=== PATIENT | male | born 1995 | race Caucasian/White ===

== ENCOUNTER 2023-04-27 02:42 | Inpatient (IN) | payer SELFPAY, OTHER ==
[2023-04-27] MEDS ORDERED: Ondansetron PF 4 MG/2 ML Vial ONE ×2 (02:46→13:35)
[2023-04-27] MEDS ORDERED: Morphine 4 MG/ML VIAL ONE ×2 (02:46→04:06)
[2023-04-27] MEDS ORDERED: Boostrix 0.5 ML (Tdap) VIAL (>/=7 yrs of age) ONE (02:47)
[2023-04-27 03:24] LABS: #Eosinphils 0.1 thou/uL (0.0-0.7); #Monocytes 0.9 thou/uL (0.11-0.59); #Neutrophils 7.7 thou/uL (1.40-6.50); %Basophils 0.2 % (0.0-1.0); %Eosinophils 0.5 % (0.0-10.0); %Lymphocytes 20.3 % (21.0-51.0); %Monocytes 8.4 % (0.0-10.0); %Neutrophils 70.3 % (42.0-75.0); Hematocrit 41.9 % (42.0-52.0); Mean Corpuscular HGB CONC 33.4 g/dL (32.0-36.0); Mean Corpuscular Hemoglobin 31.4 pg (27.0-31.0); Mean Corpuscular Volume 93.9 fl (78.0-98.0); Mean Platelet Volume 10.4 fL (7.4-10.4); Platelet Count 252 10x3/uL (130-400); RBC Distribution Width 12.8 % (11.5-14.5); Red Blood Cell (RBC) Count 4.46 mill/uL (4.70-6.10); White Blood Cell (WBC) Count 10.9 10x3/uL (4.8-10.8)
[2023-04-27] MEDS ORDERED: Morphine 4 MG/ML VIAL SLOW IVP PRN ×2 (03:25→05:03)
[2023-04-27] MEDS ORDERED: Sodium Chloride 0.9% 1,000 ML IV SCH (03:30)
[2023-04-27] MEDS ORDERED: Ondansetron PF 4 MG/2 ML Vial IVP PRN ×2 (03:30→05:04)
[2023-04-27] MEDS ORDERED: Ondansetron ODT 4 MG TAB SL PRN (03:30)
[2023-04-27 03:47] LABS: Acetaminophen Less than 10 mcg/mL (10.0-30.0); Alcohol Less than 10.0 mg/dL (Less than 10); Salicylate Less than 8.0 mg/dL (15.0-30.0)
[2023-04-27 03:48] LABS: ALT (SGPT) 13 U/L (8-55); AST (SGOT) 20 U/L (5-34); Albumin 4.5 g/dL (3.5-5.0); Alcohol Less than 10.0 mg/dL (Less than 10); Alkaline Phosphatase 73 U/L (40-110); Anion Gap 15 mmol/L (10-20); BUN (Urea Nitrogen) 14 mg/dL (8.9-20.6); Bilirubin, Total 0.4 mg/dL (0.2-1.2); Calc. Creatinine Clearance 0 mL/min (70-130); Carbon Dioxide 20 mmol/L (22-29); Chloride 106 mmol/L (98-107); Estimated GFR 93; Globulin 2.9 g/dL (2.4-3.5); Glucose 115 mg/dL (70-105); Potassium 3.3 mmol/L (3.5-5.1); Protein, Total 7.4 g/dL (6.0-8.3); Sodium 138 mmol/L (136-145)
[2023-04-27] MEDS ORDERED: NS 0.9% w/ 20 MEQ KCL 1,000 ML ONE (04:29)
[2023-04-27] MEDS ORDERED: Potassium Chloride 20 MEQ (100 mL) BAG ONE (04:30)
[2023-04-27] MEDS: Sodium Chloride 0.9% 1,000 ML IV SCH ×2 (05:00→18:21)
[2023-04-27] MEDS ORDERED: Acetaminophen 500 MG TAB PO PRN (05:04)
[2023-04-27] MEDS: traMADol HCl 50 MG TAB PO PRN ×2 (06:20→23:58)
[2023-04-27 06:35] VITALS: BMI 20.7
[2023-04-27] MEDS ORDERED: CEFAZOLIN 2 GM in Sodium Chloride 0.9% 100 ML IVPB SCH (12:00)
[2023-04-27] MEDS ORDERED: CEFAZOLIN 2 GM VIAL ONE (13:07)
[2023-04-27] MEDS ORDERED: Sodium Chloride 0.9% 100 ML ONE (13:08)
[2023-04-27] MEDS ORDERED: PROPOFOL 20 ML ONE (13:12)
[2023-04-27] MEDS ORDERED: Midazolam HCl 2 mg/2 ml Vial ONE (13:13)
[2023-04-27] MEDS ORDERED: fentaNYL 50 mcg/mL 1 mL Vial ONE (13:13)
[2023-04-27] MEDS ORDERED: Dexamethasone 4 mg/ml Vial ONE (13:35)
[2023-04-27] MEDS ORDERED: Lidocaine 1% PF 5 ML VIAL ONE (13:35)
[2023-04-27] MEDS ORDERED: Ketorolac Tromethamine 30 MG (1 mL) VIAL ONE (13:48)
[2023-04-27] MEDS ORDERED: PACU-Morphine 4MG/ML VIAL SLOW IVP PRN (14:17)
[2023-04-27] MEDS ORDERED: Ondansetron HCl/PF 4 MG/2 ML Vial IVP PRN (14:17)
[2023-04-27] MEDS ORDERED: HYDROmorphone 2 MG/ML VIAL SLOW IVP PRN (14:17)
[2023-04-27] MEDS ORDERED: Promethazine HCl 25 MG/ML VIAL IM PRN (14:17)
[2023-04-27] MEDS ORDERED: Iopamidol 370 76% 100 ML VIAL ONE (14:21)
[2023-04-27] MEDS: CEFAZOLIN 2 GM in Sodium Chloride 0.9% 100 ML IVPB SCH (20:37)
[2023-04-28] MEDS: Sodium Chloride 0.9% 1,000 ML IV SCH ×2 (01:20→10:19)
[2023-04-28] MEDS: CEFAZOLIN 2 GM in Sodium Chloride 0.9% 100 ML IVPB SCH (05:19)
[2023-04-28] MEDS ORDERED: Cephalexin 250 MG CAP PO SCH ×2 (06:00→09:00)
[2023-04-28 12:23] VITALS: BP 101/65; TEMP 98.6
== END 2023-04-28 14:49 | disposition home or self-care (01) | DRG 983 ==
LOC: ERS 02:42 → OBSVTOIN 03:21 → SJJU 03:21
PROVIDERS: ADMIT Student in an Organized Health Care Education/Training Program; ATTEND Student in an Organized Health Care Education/Training Program
PROC: 0PBL0ZZ Excision of Left Ulna, Open Approach (ICD-10-PCS; principal; 2023-04-27)
DX: S51.012A Laceration without foreign body of left elbow, initial encounter (principal); V89.2XXA Person injured in unspecified motor-vehicle accident, traffic, initial encounter; Z98.890 Other specified postprocedural states; F17.210 Nicotine dependence, cigarettes, uncomplicated; E87.6 Hypokalemia
CPT/HCPCS: 36415; 70450; 71045; 71260; 72125; 72170; 74177; 80053; 80307; 83735; 85025; 90471; 90715; 93005; 96365; 96375; 96376; G0390; J1100; J1885; J2250; J2270; J2405; J2704; J3010; J3480; J3490; J7050; Q9967